=== PATIENT | female | born 1960 | race Caucasian/White ===

== ENCOUNTER 2016-12-25 05:42 | Day surgery (SDC) | payer BC ==
[2016-12-25] MEDS ORDERED: TOBRAMYCIN 0.3% OPTH DROP 5 ML BTL OPTH ONE (10:13)
[2016-12-25] MEDS ORDERED: PREDNISOLONE ACETATE 1% OPTH 10ML BOTTLE OPTH ONE (10:13)
[2016-12-25] MEDS ORDERED: TETRACAINE HCL 0.5% OPTH 2ML SOLU OPTH ONE (10:13)
[2016-12-25] MEDS ORDERED: LIDOCAINE 2% MDV (20MG/ML) 20ML VIAL IV ONE ×2 (10:13→13:39)
[2016-12-25] MEDS ORDERED: TETRACAINE HCL 0.5% 15 ML OPTH BTL OPTH ONE (10:13)
[2016-12-25] MEDS ORDERED: TROPICAMIDE 1% 15ML BTL OP ONE (10:13)
[2016-12-25] MEDS ORDERED: EPINEPHRINE 1 MG/ML AMPUL SQ ONE (10:13)
[2016-12-25] MEDS ORDERED: LIDOCAINE 1% MPF 100MG/10ML AMPULE IV ONE (10:13)
[2016-12-25] MEDS ORDERED: NEOMYCIN/POLY./DEXAM OPTH OINT OPTH ONE (10:13)
[2016-12-25] MEDS ORDERED: PHENYLEPHRINE HCL 2.5% OPTH 2ML BTL OP ONE (10:13)
[2016-12-25] MEDS ORDERED: DICLOFENAC SODIUM 2.5 ML DROPS OPTH ONE (10:13)
[2016-12-25] MEDS ORDERED: MIDAZOLAM HCL 2MG/2ML VIAL IV ONE (13:39)
[2016-12-25] MEDS ORDERED: PROPOFOL 10 MG/ML VIAL IV ONE (13:39)
--- NOTE | 2016-12-25 16:26 | OP NOTE CHAMES ---
DATE OF PROCEDURE: 12/25/16 PREOPERATIVE DIAGNOSES: 1. Nuclear sclerotic cataract, left eye. 2. Corneal astigmatism, left eye. POSTOPERATIVE DIAGNOSES: 1. Nuclear sclerotic cataract, left eye. 2. Corneal astigmatism, left eye. OPERATION: Phacoemulsification of cataractous lens with implantation of intraocular lens with Toric intraocular lens. LENS IMPLANT USED: Duran Model [id number] + 19.5 diopters. An intraocular lens was placed at a 90 degree axis. COMPLICATIONS: None. PROCEDURE IN DETAIL: Following a retrobulbar and facial block, the patient was prepped and draped in the usual fashion for eye surgery. A lid speculum was placed in the left eye after which a 2.4 mm tunnel wound was placed at the temporal limbus and dissected into clear cornea. A paracentesis was placed at 2 oclock hours to the left and right of the initial incision and the chamber deepened with Viscoelastic. The keratome was then used to enter the anterior chamber after which the continuous circular capsulorrhexis was accomplished without difficulty using a bent needle and a Utrata forceps. Hydrodissection and hydrodelineation of the lens was performed after which the nucleus of the lens was removed using the Phaco handpiece in the [id number] technique. The residual cortical material was irrigated and aspirated from the eye after which the bag and chamber were re-examined. The bag was re-inflated with Viscoelastic and the intraocular lens injected into the capsular bag where it centered well. The Viscoelastic was then copiously irrigated and aspirated from the eye after which the temporal tunnel wound and paracentesis were hydrated and the wounds were examined. They were noted to be watertight. The lid speculum was removed from the eye and the eye patched and shielded. The patient was transferred to the recovery room in satisfactory condition and given an appointment to be reexamined in the clinic later today or as directed by Dr. Beltre. Adryan Beltre M.D. Date & Time JOB NUMBER: [id number] MTDD
== END 2016-12-25 08:52 | disposition home or self-care (01) ==
LOC: SUR 05:42
PROVIDERS: ATTEND Ophthalmology
DX: H25.12 Age-related nuclear cataract, left eye (principal); H52.202 Unspecified astigmatism, left eye; E78.00 Pure hypercholesterolemia, unspecified
CPT/HCPCS: J0171; J3490